=== PATIENT | female | born 1945 | race Caucasian/White ===

== ENCOUNTER 2023-06-08 19:08 | Emergency (ER) | payer OTHER, MEDICARE ==
[~2023-06-08] VITALS: Ht 167.6 cm; Wt 90.7 kg
--- OUTSIDE RECORDS SUMMARY | ~2023-06-08 | XMS | Continuity of Care Document ---
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 Encounters No information. Functional Status No information. Immunizations No information. Medications + + + + | date | description | facility | + + + + | 2023-03-30 00:00 | 28 ACTUAT tiotropium | [facility] | | | 0.23418 MG/ACTUAT | | | | Inhalation [place] [Spiriva] | | + + + + | 2023-03-30 00:00 | Spiriva Respimat 1.25 | [facility] | | | MCG/ACT Inhalation Aerosol | | | | Solution | | + + + + | 2023-03-30 00:00 | Advair Diskus 250-50 | [facility] | | | MCG/ACT Inhalation Aerosol | | | | Powder Breath Activated | | + + + + | 2023-03-13 00:00 | pantoprazole 40 MG Delayed | [facility] | | | Release Oral Tablet | | + + + + | 2023-03-14 00:00 | hydrochlorothiazide 12.5 | [facility] | | | MG Oral Tablet | | + + + + | 2023-05-01 00:00 | Pramipexole | [facility] | | | Dihydrochloride 0.25 MG | | | | Oral Tablet | | + + + + | 2023-03-13 00:00 | Pantoprazole Sodium 40 MG | [facility] | | | Oral Tablet Delayed Release | | | | | | + + + + | 2023-03-30 00:00 | Ventolin HFA 108 (90 Base) | [facility] | | | MCG/ACT Inhalation Aerosol | | | | Solution | | + + + + | 2023-05-01 00:00 | [facility] | | dihydrochloride 0.25 MG | | | | Oral Tablet | | + + + + | 2023-03-30 00:00 | [id number] 200 ACTUAT | [facility] | | | albuterol 0.09 MG/ACTUAT | | | | Metered Dose Inhaler | | | | [Ventolin] | | + + + + | 2023-03-30 00:00 | 60 ACTUAT fluticasone | [facility] | | | propionate 0.25 MG/ACTUAT / | | | | salmeterol 0.05 MG/ACTUAT | | | | Dry Powder Inhaler [Advair] | | + + + + | 2023-03-14 00:00 | hydroCHLOROthiazide 12.5 | [facility] | | | MG Oral Tablet | | + + + + Problems No information. Procedures No information. Results/Labs No information. Social History + + + + | date | description | facility | + + + + | 2023-03-30 00:00 | Never smoked tobacco | [facility] | | | (finding) | | + + + + | 2023-03-30 00:00 | Unknown if ever smoked [facility] | | | | | + + + + | 2023-03-30 00:00 | Ex-smoker (finding) | [facility] | | | | | + + + + | 2023-04-04 00:00 | Never smoked tobacco | [facility] | | | (finding) | | + + + + | 2023-04-04 00:00 | Unknown if ever smoked | [facility] | | | | | + + + + | 2023-04-04 00:00 | Ex-smoker (finding) | [facility] | | | | | + + + + | 2023-04-25 00:00 | Unknown if ever smoked | [facility] | | | | | + + + + | 2023-04-25 00:00 | [facility] (finding) [facility] | | | | | + + + + | 2023-05-09 00:00 | Unknown if ever smoked | [facility] | | | | | + + + + | 2023-05-09 00:00 | Ex-smoker (finding) | [facility] | | | | | + + + + Vital Signs + + + +---------+ | date | measurement | value | units | + + + +---------+ | 2023-03-30 00:00 | BP_diastolic | 84 | mmHg | + + + +---------+ | 2023-03-30 00:00 | BP_systolic | 136 | mmHg | + + + +---------+ | 2023-03-30 00:00 | heart_rate | 67 | /min | + + + +---------+ | 2023-03-30 00:00 | height_metric | 167.64 | cm | + + + +---------+ | 2023-03-30 00:00 | height_standard | 66 | in | + + + +---------+ | 2023-03-30 00:00 | o2_saturation | 95 | % | + + + +---------+ | 2023-03-30 00:00 | respiration_rate | 18 | /min | + + + +---------+ | 2023-03-30 00:00 | temperature_metric | 37 | C | | | | | | + + + +---------+ | 2023-03-30 00:00 | | 98.6 | F | | | temperature_standar | | | | | d | | | + + + +---------+"
[~2023-06-08 19:08] MED LIST: FLUTICASONE-SA1 EAC4 INH; LASIX20 MG PO; SPIRIVA RESPIMAT4 G1 INH; VENTOLIN HFA18 GM
[2023-06-08 20:03] VITALS: BP 141/79
== END 2023-06-08 20:09 | disposition home or self-care (01) ==
LOC: ED 19:08
DX: S40.012A Contusion of left shoulder, initial encounter (principal); S80.11XA Contusion of right lower leg, initial encounter; V43.52XA Car driver injured in collision with other type car in traffic accident, initial encounter; Z79.899 Other long term (current) drug therapy
CPT/HCPCS: 71045; 73030; 73590; 99284-25